=== PATIENT | male | born 1985 | race Caucasian/White ===

== ENCOUNTER 2017-09-11 11:16 | Emergency (ER) | payer MEDICAID ==
[2017-09-11] MEDS ORDERED: hydrOXYzine HCl 25 MG Tab PO ONE (13:29)
[2017-09-11] MEDS ORDERED: methylPREDNISolone Sodium Succinate 125 MG/2 ML SDV IM ONE (13:29)
--- NOTE | 2017-09-11 13:35 | EDM.PDOC ---
ED HPI GENERAL MEDICAL PROBLEM - General Chief Complaint: Skin Complaint Stated Complaint: RASH Time Seen by Provider: 09/11/17 13:23 - History of Present Illness INITIAL COMMENTS - FREE TEXT/NARRATIVE: HISTORY AND PHYSICAL: History of present illness: The patient is a 31-year-old male who presents with a three-week history of dry rash which is intermittently itchy. The patient says he is from [place] and is out here working and is not used to the dryness and the cold and first noticed the rash had his inner thigh area which started out red and dry without itch but only issue at nighttime. Now the patient has the rash along his boot line as well as his waistline but there is no rash on his upper extremities is upper chest or back or face. Patient has used intermittently over the last 3 weeks Benadryl [id number] as well as [id number] hydrocortisone and has no local provider for care. He eating and drinking normally and has no other systemic complaints Review of systems: As per history of present illness and below otherwise all systems reviewed and negative. Past medical history: As per history of present illness and as reviewed below otherwise noncontributory. Surgical history: As per history of present illness and as reviewed below otherwise noncontributory. Social history: No reported history of drug or alcohol abuse. Family history: As per history of present illness and as reviewed below otherwise noncontributory. Physical exam: Gen.: Well-developed well-nourished man who is nontoxic and vital signs been reviewed by me HEENT: Atraumatic, normocephalic, pupils reactive, negative for conjunctival pallor or scleral icterus, mucous membranes moist, throat clear, neck supple, nontender, trachea midline. No oropharyngeal or facial swelling Lungs: Clear to auscultation, breath sounds equal bilaterally, chest nontender. Heart: S1S2, regular rate and rhythm no overt murmurs Abdomen: Soft, nondistended, nontender. . Pelvis: Stable nontender. Genitourinary: Deferred. Rectal: Deferred. Extremities: Atraumatic, negative for cords or calf pain. Neurovascular unremarkable. Neuro: Awake, alert, oriented. Cranial nerves II through XII unremarkable. Cerebellum unremarkable. Motor and sensory unremarkable throughout. Exam nonfocal. Skin: There are localized areas of what appears to be a dermatitis-like reaction noted along his waistline at mid abdomen and along the sides, inner thighs, along the line at the lower leg and all these rash areas are pinkish erythema not raised and are rough dry and scaly. There are no raised lesions or skin breaks there is no vesicles and the remainder of the skin is without rashes or lesions. Diagnostics: [] Therapeutics: Solu-Medrol Vistaril Impression: Exanthems/dermatitis subacute Definitive disposition and diagnosis as appropriate pending reevaluation and review of above. ED ROS GENERAL - Review of Systems Review Of Systems: ROS reveals no pertinent complaints other than HPI. ED EXAM, SKIN/RASH Exam: See Below (See dictation) Course - Orders/Labs/Meds Orders: Active Orders 24 hr Category Date Time Status hydrOXYzine HCl [Atarax] Med 09/11/17 13:29 Once 25 mg PO ONETIME ONE methylPREDNISolone Sod Succ [Solu-MEDROL] Med 09/11/17 13:29 Once 125 mg IM ONETIME ONE Departure - Departure Time of Disposition: 13:34 Disposition: Home, Self-Care 01 Condition: Good Clinical Impression: Dermatitis - Discharge Information Referrals: PCP,None [Primary Care Provider] - Additional Instructions: The following information is given to patients seen in the emergency department who are being discharged to home. This information is to outline your options for follow-up care. We provide all patients seen in our emergency department with a follow-up referral. The need for follow-up, as well as the timing and circumstances, are variable depending upon the specifics of your emergency department visit. If you don't have a primary care physician on staff, we will provide you with a referral. We always advise you to contact your personal physician following an emergency department visit to inform them of the circumstance of the visit and for follow-up with them and/or the need for any referrals to a consulting specialist. The emergency department will also refer you to a specialist when appropriate. This referral assures that you have the opportunity for followup care with a specialist. All of these measure are taken in an effort to provide you with optimal care, which includes your followup. Under all circumstances we always encourage you to contact your private physician who remains a resource for coordinating your care. When calling for followup care, please make the office aware that this follow-up is from your recent emergency room visit. If for any reason you are refused follow-up, please contact the [facility] emergency department at and ask to speak to the emergency department charge nurse. [facility] Primary care- Internal Medicine and Family [address] [address] Please use all hypoallergenic products such as Cetaphil soap and lotion, hypoallergenic laundry detergent and use medications, Atarax prednisone and triamcinolone cream as prescribed. Please call and follow-up in our clinic as this rash may change involve needing reevaluation and further care pending this care plan that we have started today. Return to ER as needed and as discussed. - My Orders Last 24 Hours: My Active Orders 09/11/17 13:29 hydrOXYzine HCl [Atarax] 25 mg PO ONETIME ONE methylPREDNISolone Sod Succ [Solu-MEDROL] 125 mg IM ONETIME ONE - Assessment/Plan Last 24 Hours: My Active Orders 09/11/17 13:29 hydrOXYzine HCl [Atarax] 25 mg PO ONETIME ONE methylPREDNISolone Sod Succ [Solu-MEDROL] 125 mg IM ONETIME ONE
== END 2017-09-11 13:48 | disposition home or self-care (01) ==
LOC: MW.ED 11:16
DX: L30.9 Dermatitis, unspecified (principal)
CPT/HCPCS: 96372; 99282; A9270; J2930

== ENCOUNTER 2018-02-08 20:34 | Emergency (ER) | payer MEDICAID ==
[2018-02-08] MEDS ORDERED: Albuterol/Ipratropium 3.0-0.5 MG/3 ML Neb Soln NEB ONE ×2 (20:41→21:43)
--- NOTE | 2018-02-08 20:44 | EDM.PDOC ---
ED HPI GENERAL MEDICAL PROBLEM - General Chief Complaint: Respiratory Problem Stated Complaint: TROUBLE BREATHING Time Seen by Provider: 02/08/18 20:36 Source of Information: Reports: Patient History Limitations: Reports: No Limitations - History of Present Illness INITIAL COMMENTS - FREE TEXT/NARRATIVE: HISTORY AND PHYSICAL: History of present illness: 32-year-old male presenting to emergency department with chief complaint of shortness of breath progressively worsening over the past 2 months with past medical history of exertional asthma as a child. Patient states that approximately 2 months ago he became somewhat short of breath when running back from work. This is progressively beginning worse. States that he is stopping smoking but seems to be worse when he is smoking. Recently but not drinking in "chain smoker". States that today he became more and more short of breath which was concerning so came to emergency room for further evaluation. States that his shortness of breath has been worse at night does have a history of seasonal allergies and takes Benadryl at night as well. As above he is a smoker and currently quitting. History of childhood exertional asthma which resolved with age. Does not have an inhaler at home and does not see a primary care provider here in [place]. From [facility]. Currently denies any chest pain, palpitations, syncopal episodes, or focal neurologic episodes. O2 sat 95% on room air. Review of systems: As per history of present illness and below otherwise all systems reviewed and negative. Past medical history: As per history of present illness and as reviewed below otherwise noncontributory. Surgical history: As per history of present illness and as reviewed below otherwise noncontributory. Social history: No reported history of drug or alcohol abuse. Family history: As per history of present illness and as reviewed below otherwise noncontributory. Physical exam: HEENT: Atraumatic, normocephalic, pupils reactive, negative for conjunctival pallor or scleral icterus, mucous membranes moist, throat clear, neck supple, nontender, trachea midline. Lungs: Generalized wheezing and decreased breath sounds heard bilaterally and throughout, chest nontender. Heart: S1S2, regular, negative for clicks, rubs, or JVD. Abdomen: Soft, nondistended, nontender. Negative for masses or hepatosplenomegaly. Negative for costovertebral tenderness. Pelvis: Stable nontender. Genitourinary: Deferred. Rectal: Deferred. Extremities: Atraumatic, negative for cords or calf pain. Neurovascular unremarkable. Neuro: Awake, alert, oriented. Cranial nerves II through XII unremarkable. Cerebellum unremarkable. Motor and sensory unremarkable throughout. Exam nonfocal. Diagnostics: Chest x-ray Therapeutics: DuoNeb 2, Ventolin inhaler 1, Kenalog 40 mg IM, Prednisone 40 mg q day x 4 days Impression: Acute asthma exacerbation Seasonal allergies Smoking dependency Plan: Patient had significant improvement after 2 DuoNeb's and 40 mg IM Kenalog. He was discharged in good condition with a prescription for a Ventolin inhaler as well as prednisone 40 mg by mouth daily 4 days. He was instructed to follow-up with the primary care provider and numbers were listed. He was instructed to take medications as prescribed and return to emergency department if he had any new or worsening symptoms. chest area Pain Score (Numeric/FACES): 5 - Related Data Allergies Allergy/AdvReac Type Severity Reaction Status Date / Time No Known Allergies Allergy Verified 02/08/18 20:42 Home Meds: Home Meds . [No Known Home Meds] 09/11/17 [History] Past Medical History - Past Health History Medical/Surgical History: Denies Medical/Surgical History Social & Family History - Family History Family Medical History: Noncontributory ED ROS GENERAL - Review of Systems Review Of Systems: ROS reveals no pertinent complaints other than HPI. ED EXAM, GENERAL - Physical Exam Exam: See Below Course - Vital Signs Last Recorded V/S: Last Vital Signs Temp 97.5 F 02/08/18 20:42 Pulse 62 02/08/18 22:25 Resp 18 02/08/18 22:25 BP 143/78 H 02/08/18 22:25 Pulse Ox 100 02/08/18 21:01 - Orders/Labs/Meds Orders: Active Orders 24 hr Category Date Time Status RT Aerosol Therapy [RC] ASDIRECTED Care 02/08/18 20:41 Active RT Aerosol Therapy [RC] ASDIRECTED Care 02/08/18 21:44 Active Chest 2V [CR] Stat Exams 02/08/18 20:41 Taken Meds: Medications Discontinued Medications Generic Name Dose Route Start Last Admin Trade Name Freq PRN Reason Stop Dose Admin Albuterol/Ipratropium 3 ml 02/08/18 20:41 02/08/18 20:53 Duoneb 3.0-0.5 Mg/3 Ml NEB 02/08/18 20:42 3 ml ONETIME ONE Administration Albuterol/Ipratropium 3 ml 02/08/18 21:43 02/08/18 22:19 Duoneb 3.0-0.5 Mg/3 Ml NEB 02/08/18 21:44 3 ml ONETIME ONE Administration Triamcinolone Acetonide 40 mg 02/08/18 21:44 02/08/18 22:20 Kenalog-40 IM 02/08/18 21:45 40 mg ONETIME ONE Administration Departure - Departure Time of Disposition: 22:37 Disposition: Home, Self-Care 01 Condition: Good Clinical Impression: Asthma exacerbation, mild, Seasonal allergic reaction - Discharge Information Instructions: Asthma, Adult, [id number] Referrals: PCP,None [Primary Care Provider] - Forms: ED Department Discharge Additional Instructions: My general discharge The following information is given to patients seen in the emergency department who are being discharged to home. This information is to outline your options for follow-up care. We provide all patients seen in our emergency department with a follow-up referral. The need for follow-up, as well as the timing and circumstances, are variable depending upon the specifics of your emergency department visit. If you don't have a primary care physician on staff, we will provide you with a referral. We always advise you to contact your personal physician following an emergency department visit to inform them of the circumstance of the visit and for follow-up with them and/or the need for any referrals to a consulting specialist. The emergency department will also refer you to a specialist when appropriate. This referral assures that you have the opportunity for follow-up care with a specialist. All of these measure are taken in an effort to provide you with optimal care, which includes your follow-up. Under all circumstances we always encourage you to contact your private physician who remains a resource for coordinating your care. When calling for follow-up care, please make the office aware that this follow-up is from your recent emergency room visit. If for any reason you are refused follow-up, please contact the [facility] Emergency Department at and asked to speak to the emergency department charge nurse. [facility] Primary [facility] [address] [place] [id number] [facility] [address] [place] [address] 1. Follow-up with primary care provider. Be sure to tell them that you're in the emergency department and they wish for you to be seen as soon as possible. 2. Take medications as prescribed. 3. Return to emergency department if any new or worsening symptoms. - My Orders Last 24 Hours: My Active Orders 02/08/18 20:41 RT Aerosol Therapy [RC] ASDIRECTED Chest 2V [CR] Stat 02/08/18 21:44 RT Aerosol Therapy [RC] ASDIRECTED - Assessment/Plan Last 24 Hours: My Active Orders 02/08/18 20:41 RT Aerosol Therapy [RC] ASDIRECTED Chest 2V [CR] Stat 02/08/18 21:44 RT Aerosol Therapy [RC] ASDIRECTED
[2018-02-08] MEDS ORDERED: Triamcinolone Acetonide 40 MG/ML 1 ML MDV IM ONE (21:44)
--- NOTE | 2018-02-09 19:06 | CR ---
EXAM DATE: 02/08/18 PATIENT'S AGE: 32 Patient: ANOOP SAUCEDA Facility: [place], [place] Site . Site : 1985 Study: XRay Chest [id number]/1/2018 9:27:19 PM Ordering Physician: Clifton Lambert Final Report: INDICATION: hard to breathe since smoking cigarettes INDICATION: Difficulty in breathing. TECHNIQUE: Chest 2 views. COMPARISON: None FINDINGS: Cardiovascular and mediastinum: Heart size and vasculature are normal in caliber and appearance. Mediastinum is within normal limits. Lungs and pleural spaces: Lungs are clear. No sign of infiltrate or mass. No sign of pleural effusion. No pneumothorax. Bones and soft tissues: No significant findings. IMPRESSION: Lungs are clear. Dictated by Venkatesh Villanueva MD @ 02/08/2018 9:31:31 PM Dictated by: Venkatesh Villanueva MD @ 02/08/2018 21:31:36 (Electronic Signature) Report Signed by Proxy. [facility]
== END 2018-02-08 22:45 | disposition home or self-care (01) ==
LOC: MW.ED 20:34
DX: J45.901 Unspecified asthma with (acute) exacerbation (principal); F17.210 Nicotine dependence, cigarettes, uncomplicated
CPT/HCPCS: 71046; 94640; 96372; 99285; J3301

== ENCOUNTER 2018-10-19 19:16 | Emergency (ER) | payer BC, MEDICAID ==
[2018-10-19] MEDS ORDERED: Sodium Chloride 0.9% 2.5 ML Syringe FLUSH PRN (19:21)
[2018-10-19] MEDS ORDERED: Sodium Chloride 0.9% 10 ML Syringe FLUSH PRN (19:21)
[2018-10-19] MEDS ORDERED: Aspirin 81 MG Tab.Chew PO ONE (19:22)
[2018-10-19] MEDS ORDERED: Sodium Chloride 0.9% 1,000 ML IV ONE (19:22)
[2018-10-19] MEDS ORDERED: LORazepam 2 MG/ML SDV IVPUSH ONE (19:22)
--- NOTE | 2018-10-19 19:26 | EDM.PDOC ---
ED HPI GENERAL MEDICAL PROBLEM - General Chief Complaint: Chest Pain Stated Complaint: CHEST PAIN, DIZZY, SHORTNESS OF BREATH Time Seen by Provider: 10/19/18 19:17 - History of Present Illness INITIAL COMMENTS - FREE TEXT/NARRATIVE: HISTORY AND PHYSICAL: History of present illness: The patient is a 32-year-old male with no cardiac or pulmonary history and takes no medications nor does he have a provider locally but does say that he has struggled with anxiety for many years and presents with several days of feeling short of breath with palpitations lightheadedness and worsening of his anxiety symptoms. He says that the symptoms start with his heart beating faster and then he feels like his chest is tight and he feels like he short of breath and he feels very anxious. These episodes come and go and seem to be worse when he is out in public. The patient is been eating and drinking normally. He's had no upper respiratory symptoms fever chills nausea vomiting or diarrhea. He has not passed out or blacked out with these symptoms. The episodes vary in length and he is not taking anything specifically for them. The patient admits to me that he used to smoke a lot of cigarettes and drink alcohol heavily and he gave up both 9 days ago and has been clean for 9 days. He says he did go through some withdrawal symptoms but those seem to have subsided when these new symptoms started. He does not have a head neck or back pain and these had no falls. Patient said that there is nothing new or different today versus any of the days preceding with the same symptoms but he said he is just "freaking out and worried about them". He also said that some coworkers said that maybe he has hypertension he should come in and get checked out. Patient does have a scheduled follow-up appointment in the near future to address his anxiety issues. The patient did admit to nursing that he smoked marijuana 2 weeks ago but he does not use any method of cocaine and is not a regular marijuana user. Review of systems: As per history of present illness and below otherwise all systems reviewed and negative. Past medical history: As per history of present illness and as reviewed below otherwise noncontributory. Surgical history: As per history of present illness and as reviewed below otherwise noncontributory. Social history: No reported history of drug or alcohol abuse. Family history: As per history of present illness and as reviewed below otherwise noncontributory. Physical exam: General: Well-developed well-nourished man who is nontoxic and seem slightly anxious in the room but is cooperative and interactive and not breathless. Vital signs are noted by me HEENT: Atraumatic, normocephalic, pupils reactive, negative for conjunctival pallor or scleral icterus, mucous membranes moist, throat clear, neck supple, nontender, trachea midline. Lungs: Clear to auscultation, breath sounds equal bilaterally, chest nontender. Heart: S1S2, regular rhythm and slightly tachycardic rate of my evaluation, just over 100, no overt murmurs, negative for clicks, rubs, or JVD. Abdomen: Soft, nondistended, nontender. Negative for masses or hepatosplenomegaly.NABS Pelvis: Stable nontender. Genitourinary: Deferred. Rectal: Deferred. Extremities: Atraumatic, negative for cords or calf pain. Neurovascular unremarkable. No pedal edema or leg asymmetry Neuro: Awake, alert, oriented. Cranial nerves II through XII unremarkable. Cerebellum unremarkable. Motor and sensory unremarkable throughout. Exam nonfocal. Skin: He slightly clammy to touch but he is not grossly diaphoretic and turgor is normal. There are no overt rashes or lesions Diagnostics: EKG orthostatic vitals CBC CMP troponin TSH chest x-ray Therapeutics: IV O2 monitor IV fluids aspirin Ativan I discussed with patient and at bedside all testing results including the potassium of 3.1 and the need to supplement with his diet potassium which foods. I've also discussed with him about sodium and to start watching that as it will help his blood pressure. The patient has an appointment with Dr. Simmons next week and I advised the patient to discuss not only his anxiety but also his borderline hypertension as he may need to become medicated for that. I will give him a few tablets of Ativan to use if his anxiety becomes too overwhelming but I have advised him to not take that when he is out and about or work. He is aware of reasons to return to the ED Impression: Episodic palpitations and dyspnea with history of anxiety stable Definitive disposition and diagnosis as appropriate pending reevaluation and review of above. Chest Pain Score (Numeric/FACES): 1 - Related Data Allergies Allergy/AdvReac Type Severity Reaction Status Date / Time No Known Allergies Allergy Verified 10/19/18 19:22 Home Meds: Home Meds . [No Known Home Meds] 10/19/18 [History] Past Medical History - Past Health History Medical/Surgical History: Denies Medical/Surgical History HEENT History: Reports: None Cardiovascular History: Reports: None Respiratory History: Reports: Asthma Gastrointestinal History: Reports: None Genitourinary History: Reports: None Musculoskeletal History: Reports: None Neurological History: Reports: None Psychiatric History: Reports: None Endocrine/Metabolic History: Reports: None Hematologic History: Reports: None Immunologic History: Reports: None Oncologic (Cancer) History: Reports: None Dermatologic History: Reports: None - Infectious Disease History Infectious Disease History: Reports: None - Past Surgical History Head Surgeries/Procedures: Reports: None Social & Family History - Family History Family Medical History: Noncontributory - Caffeine Use Caffeine Use: Reports: Energy Drinks, Soda ED ROS GENERAL - Review of Systems Review Of Systems: ROS reveals no pertinent complaints other than HPI. ED EXAM, GENERAL - Physical Exam Exam: See Below (See dictation) Course - Vital Signs Last Recorded V/S: Last Vital Signs Temp 36.0 C 10/19/18 19:18 Pulse 111 H 10/19/18 19:18 Resp BP 187/97 H 10/19/18 19:18 Pulse Ox 99 10/19/18 19:18 Orthostatic Blood Pressure [ 157/90 Standing] Orthostatic Blood Pressure [ 158/93 Sitting] Orthostatic Blood Pressure [ 157/85 Supine] - Orders/Labs/Meds Orders: Active Orders 24 hr Category Date Time Status Cardiac Monitoring [RC] . DIRECTED Care 10/19/18 19:21 Active EKG Documentation Completion [RC] STAT Care 10/19/18 19:21 Active Orthostatic Vital Signs [RC] ASDIRECTED Care 10/19/18 19:21 Active Oxygen Therapy, ED [RC] ASDIRECTED Care 10/19/18 19:21 Active Pulse Oximetry [RC] ASDIRECTED Care 10/19/18 19:21 Active Chest 1V Frontal [CR] Stat Exams 10/19/18 19:22 Taken Sodium Chloride 0.9% [Saline Flush] Med 10/19/18 19:21 Active 10 ml FLUSH ASDIRECTED PRN Sodium Chloride 0.9% [Saline Flush] Med 10/19/18 19:21 Active 2.5 ml FLUSH ASDIRECTED PRN Saline Lock Insert [OM.PC] Stat Oth 10/19/18 19:21 Ordered Medication Orders Sodium Chloride (Saline Flush) 10 ml FLUSH ASDIRECTED PRN PRN Reason: Keep Vein Open Last Admin: 10/19/18 19:30 Dose: 10 ml Sodium Chloride (Saline Flush) 2.5 ml FLUSH ASDIRECTED PRN PRN Reason: Keep Vein Open Last Admin: 10/19/18 19:30 Dose: 2.5 ml Labs: Laboratory Tests 10/19/18 10/19/18 Range/Units 19:26 19:26 WBC 10.53 (4.0-11.0) K/uL RBC 5.10 (4.50-5.90) M/uL Hgb 16.1 (13.0-17.0) g/dL Hct 46.8 (38.0-50.0) % MCV 91.8 (80.0-98.0) fL MCH 31.6 (27.0-32.0) pg MCHC 34.4 (31.0-37.0) g/dL RDW Std Deviation 42.3 (28.0-62.0) fl RDW Coeff of Dede 13 (11.0-15.0) % Plt Count 391 (150-400) K/uL MPV 8.70 (7.40-12.00) fL Neut % (Auto) 55.1 (48.0-80.0) % Lymph % (Auto) 37.3 (16.0-40.0) % [place] % (Auto) 5.2 (0.0-15.0) % Eos % (Auto) 2.2 (0.0-7.0) % Baso % (Auto) 0.2 (0.0-1.5) % Neut # (Auto) 5.8 H (1.4-5.7) K/uL Lymph # (Auto) 3.9 H (0.6-2.4) K/uL [place] # (Auto) 0.6 (0.0-0.8) K/uL Eos # (Auto) 0.2 (0.0-0.7) K/uL Baso # (Auto) 0.0 (0.0-0.1) K/uL Nucleated RBC % 0.0 /100WBC Nucleated RBCs # 0 K/uL Sodium 140 (136-148) mmol/L Potassium 3.1 L (3.5-5.1) mmol/L Chloride 103 (98-107) mmol/L Carbon Dioxide 27.4 (21.0-32.0) mmol/L BUN 9 (7.0-18.0) mg/dL Creatinine 1.2 (0.8-1.3) mg/dL Est Cr Clr Drug Dosing 88.38 mL/min Estimated GFR (MDRD) > 60.0 ml/min Glucose 102 (74-106) mg/dL Calcium 9.2 (8.5-10.1) mg/dL Total Bilirubin 0.2 (0.2-1.0) mg/dL AST 24 (15-37) IU/L ALT 50 (14-63) IU/L Alkaline Phosphatase 71 (46-116) U/L Troponin I < 0.050 (0.000-0.056) ng/mL Total Protein 7.8 (6.4-8.2) g/dL Albumin 4.3 (3.4-5.0) g/dL Globulin 3.5 (2.6-4.0) g/dL Albumin/Globulin Ratio 1.2 (0.9-1.6) TSH 3rd Generation 1.43 (0.36-3.74) uIU/mL Meds: Medications Generic Name Dose Route Start Last Admin Trade Name Shari PRN Reason Stop Dose Admin Sodium Chloride 10 ml 10/19/18 19:21 10/19/18 19:30 Saline Flush FLUSH 10 ml ASDIRECTED PRN Administration Keep Vein Open Sodium Chloride 2.5 ml 10/19/18 19:21 10/19/18 19:30 Saline Flush FLUSH 2.5 ml ASDIRECTED PRN Administration Keep Vein Open Discontinued Medications Generic Name Dose Route Start Last Admin Trade Name Freq PRN Reason Stop Dose Admin Aspirin 324 mg 10/19/18 19:22 10/19/18 19:28 Aspirin PO 10/19/18 19:23 324 mg ONETIME ONE Administration Sodium Chloride 1,000 mls @ 999 mls/hr 10/19/18 19:22 10/19/18 19:28 Normal Saline IV 10/19/18 20:22 999 mls/hr STAT ONE Administration Lorazepam 1 mg 10/19/18 19:22 10/19/18 19:29 Ativan IVPUSH 10/19/18 19:23 1 mg ONETIME ONE Administration Departure - Departure Time of Disposition: 20:28 Disposition: Home, Self-Care 01 Condition: Good Clinical Impression: Palpitations Dyspnea Qualifiers: Dyspnea type: unspecified Qualified Code(s): R06.00 - Dyspnea, unspecified - Discharge Information Referrals: Raffaele Simmons MD [Primary Care Provider] - Forms: ED Department Discharge Additional Instructions: The following information is given to patients seen in the emergency department who are being discharged to home. This information is to outline your options for follow-up care. We provide all patients seen in our emergency department with a follow-up referral. The need for follow-up, as well as the timing and circumstances, are variable depending upon the specifics of your emergency department visit. If you don't have a primary care physician on staff, we will provide you with a referral. We always advise you to contact your personal physician following an emergency department visit to inform them of the circumstance of the visit and for follow-up with them and/or the need for any referrals to a consulting specialist. The emergency department will also refer you to a specialist when appropriate. This referral assures that you have the opportunity for followup care with a specialist. All of these measure are taken in an effort to provide you with optimal care, which includes your followup. Under all circumstances we always encourage you to contact your private physician who remains a resource for coordinating your care. When calling for followup care, please make the office aware that this follow-up is from your recent emergency room visit. If for any reason you are refused follow-up, please contact the [facility] emergency department at and ask to speak to the emergency department charge nurse. [facility] Primary care- Internal Medicine and Family [place] [id number] [place] [id number] [place] [address] Please keep your follow-up appointment with Dr. Simmons or connect with one of our providers in the clinic using resources given to above. Use Ativan you have been given only when you're at home and only when you cannot control your anxiety or other symptoms more naturally. Push hydration and eat potassium-rich foods. Please start looking at the content of the foods that you're eating to assess the sodium amount and try to reduce sodium intake. Return to ER as needed and as discussed - My Orders Last 24 Hours: My Active Orders 10/19/18 19:21 Cardiac Monitoring [RC] . DIRECTED EKG Documentation Completion [RC] STAT Orthostatic Vital Signs [RC] ASDIRECTED Oxygen Therapy, ED [RC] ASDIRECTED Pulse Oximetry [RC] ASDIRECTED Sodium Chloride 0.9% [Saline Flush] 10 ml FLUSH ASDIRECTED PRN Sodium Chloride 0.9% [Saline Flush] 2.5 ml FLUSH ASDIRECTED PRN Saline Lock Insert [OM.PC] Stat 10/19/18 19:22 Chest 1V Frontal [CR] Stat - Assessment/Plan Last 24 Hours: My Active Orders 10/19/18 19:21 Cardiac Monitoring [RC] . DIRECTED EKG Documentation Completion [RC] STAT Orthostatic Vital Signs [RC] ASDIRECTED Oxygen Therapy, ED [RC] ASDIRECTED Pulse Oximetry [RC] ASDIRECTED Sodium Chloride 0.9% [Saline Flush] 10 ml FLUSH ASDIRECTED PRN Sodium Chloride 0.9% [Saline Flush] 2.5 ml FLUSH ASDIRECTED PRN Saline Lock Insert [OM.PC] Stat 10/19/18 19:22 Chest 1V Frontal [CR] Stat
[2018-10-19 19:59] LABS: CHLORIDE,CL 103 mmol/L (98-107); SODIUM,NA 140 mmol/L (136-148)
--- NOTE | 2018-10-19 20:33 | CR ---
CHEST 1 VIEW AP INDICATION: Chest pain. IMPRESSION: Normal heart size and vascular pattern. Lungs are clear. No pneumothorax or pleural abnormality. ECG Monitor leads projected over the patient. Dictated by Minh Sánchez MD @ Oct 19 2018 8:32PM Signed by Dr. Minh Sánchez @ Oct 19 2018 8:32PM
== END 2018-10-19 20:38 | disposition home or self-care (01) ==
LOC: MW.ED 19:16
DX: R00.2 Palpitations (principal); R06.02 Shortness of breath
CPT/HCPCS: 71045; 80053; 84443; 84484; 85025; 93005; 96361; 96374; 99285; A9270; J2060; J7040; 99284

== ENCOUNTER 2018-11-10 18:28 | Emergency (ER) | payer BC ==
--- NOTE | 2018-11-10 18:50 | EDM.PDOC ---
ED HPI GENERAL MEDICAL PROBLEM - General Chief Complaint: Respiratory Problem Stated Complaint: SPOKE TO NURSE Time Seen by Provider: 11/10/18 18:36 Source of Information: Reports: Patient History Limitations: Reports: No Limitations - History of Present Illness INITIAL COMMENTS - FREE TEXT/NARRATIVE: HISTORY AND PHYSICAL: History of present illness: Patient is a 33-year-old male who presents to the emergency room with complaints of a cough and dental abscess to the right upper jawline. He states he has had this cough over the past week and has been using a family members inhaler. He states he inhaler has helped alleviate his symptoms but has not completely resolved. He also has noticed a dental abscess to the right upper jawline which she has not yet seen a dentist for. Patient denies any fever, chills, headache, change in vision, syncope or near syncope. Denies any chest pain, back pain, shortness of breath. Denies any abdominal pain, nausea, vomiting, diarrhea, constipation or dysuria. Has not noted any blood in urine or stool. Patient has been eating and drinking appropriately. Review of systems: As per history of present illness and below otherwise all systems reviewed and negative. Past medical history: As per history of present illness and as reviewed below otherwise noncontributory. Surgical history: As per history of present illness and as reviewed below otherwise noncontributory. Social history: See social history for further information Family history: As per history of present illness and as reviewed below otherwise noncontributory. Physical exam: General: Well-developed and well-nourished 33-year-old male. Alert and oriented. Nontoxic appearing and in no acute distress. HEENT: Atraumatic, normocephalic, pupils equal and reactive bilaterally, negative for conjunctival pallor or scleral icterus, mucous membranes moist, dental abscess noted along the tooth #14 with erythema of the gumline. TMs normal bilaterally, throat clear, neck supple, nontender, trachea midline. No drooling or trismus noted. No meningeal signs. No hot potato voice noted. Lungs: Clear to auscultation, breath sounds equal bilaterally, chest nontender. Heart: S1S2, regular rate and rhythm without overt murmur Abdomen: Soft, nondistended, nontender. Negative for masses or hepatosplenomegaly. Negative for costovertebral tenderness. Pelvis: Stable nontender. Genitourinary: Deferred. Rectal: Deferred. Skin: Intact, warm, dry. No lesions or rashes noted. Extremities: Atraumatic, moves all extremities per self with difficulty or deficits, negative for cords or calf pain. Neurovascular unremarkable. Neuro: Awake, alert, oriented. Cranial nerves II through XII unremarkable. Cerebellum unremarkable. Motor and sensory unremarkable throughout. Exam nonfocal. Notes: Chest x-ray shows no acute findings. I will give him a prescription for inhaler. We'll treat the dental abscess with clindamycin. Supportive care measures were reviewed and discussed. Voices understanding and is agreeable to plan of care. Denies any further questions or concerns at this time. Diagnostics: Chest x-ray Therapeutics: Dental balls Prescription: Clindamycin Pro-air Impression: Bronchitis Dental abscess Plan: 1. Please take the antibiotic as prescribed. Continue to abstain from tobacco. 2. Tylenol and/or ibuprofen as needed for pain management. "Tooth Balls" have been given to you; apply along the gumline every 2-3 hours as needed. Do not swallow these; external use only. Use the inhaler as needed for difficulty breathing. 3. Follow-up with a dentist for definitive care. Return to the ED as needed and as discussed. Definitive disposition and diagnosis as appropriate pending reevaluation and review of above. - Related Data Allergies Allergy/AdvReac Type Severity Reaction Status Date / Time No Known Allergies Allergy Verified 11/10/18 18:40 Home Meds: Home Meds LORazepam [Ativan] 0.5 mg PO DAILY PRN 11/10/18 [History] Past Medical History - Past Health History Medical/Surgical History: Denies Medical/Surgical History HEENT History: Reports: None Cardiovascular History: Reports: None Respiratory History: Reports: Asthma Gastrointestinal History: Reports: None Genitourinary History: Reports: None Musculoskeletal History: Reports: None Neurological History: Reports: None Psychiatric History: Reports: None Endocrine/Metabolic History: Reports: None Hematologic History: Reports: None Immunologic History: Reports: None Oncologic (Cancer) History: Reports: None Dermatologic History: Reports: None - Infectious Disease History Infectious Disease History: Reports: None - Past Surgical History Head Surgeries/Procedures: Reports: None Social & Family History - Family History Family Medical History: Noncontributory - Caffeine Use Caffeine Use: Reports: Energy Drinks, Soda ED ROS GENERAL - Review of Systems Review Of Systems: ROS reveals no pertinent complaints other than HPI. ED EXAM, GENERAL - Physical Exam Exam: See Below (See dictation) Course - Vital Signs Last Recorded V/S: Last Vital Signs Temp 97.9 F 11/10/18 18:41 Pulse 78 11/10/18 19:37 Resp 18 11/10/18 19:37 BP 134/82 11/10/18 19:37 Pulse Ox 97 11/10/18 19:37 - Orders/Labs/Meds Meds: Medications Discontinued Medications Generic Name Dose Route Start Last Admin Trade Name Freq PRN Reason Stop Dose Admin Benzocaine 2 each 11/10/18 18:57 11/10/18 19:23 Hurricaine One 20% MUCMEM 11/10/18 18:58 2 each ONETIME ONE Administration Lidocaine HCl 15 ml 11/10/18 18:57 11/10/18 19:23 Xylocaine 2% Viscous PO 11/10/18 18:58 15 ml ONETIME ONE Administration Departure - Departure Time of Disposition: 19:04 Disposition: Home, Self-Care 01 Clinical Impression: Dental abscess, Bronchitis - Discharge Information Instructions: Dental Abscess, [id number], Acute Bronchitis, Adult, Easy-to- Read Referrals: PCP,Unknown [Primary Care Provider] - Forms: ED Department Discharge Additional Instructions: The following information is given to patients seen in the emergency department who are being discharged to home. This information is to outline your options for follow-up care. We provide all patients seen in our emergency department with a follow-up referral. The need for follow-up, as well as the timing and circumstances, are variable depending upon the specifics of your emergency department visit. If you don't have a primary care physician on staff, we will provide you with a referral. We always advise you to contact your personal physician following an emergency department visit to inform them of the circumstance of the visit and for follow-up with them and/or the need for any referrals to a consulting specialist. The emergency department will also refer you to a specialist when appropriate. This referral assures that you have the opportunity for follow-up care with a specialist. All of these measure are taken in an effort to provide you with optimal care, which includes your follow-up. Under all circumstances we always encourage you to contact your private physician who remains a resource for coordinating your care. When calling for follow-up care, please make the office aware that this follow-up is from your recent emergency room visit. If for any reason you are refused follow-up, please contact the [facility] Emergency Department at and asked to speak to the emergency department charge nurse. [facility] Primary [facility] [address] [place] [address] [facility] [address] [place] [id number] 1. Please take the antibiotic as prescribed. Continue to abstain from tobacco. 2. Tylenol and/or ibuprofen as needed for pain management. "Tooth Balls" have been given to you; apply along the gumline every 2-3 hours as needed. Do not swallow these; external use only. Use the inhaler as needed for difficulty breathing. 3. Follow-up with a dentist for definitive care. Return to the ED as needed and as discussed.
[2018-11-10] MEDS ORDERED: Lidocaine 2% Viscous Solution 15 ML Cup PO ONE (18:57)
[2018-11-10] MEDS ORDERED: Benzocaine 20% Topical Spray UD MUCMEM ONE (18:57)
--- NOTE | 2018-11-10 19:29 | CR ---
INDICATION: Chest pain, shortness of breath TECHNIQUE: Chest radiograph 2 views COMPARISON: 10/19/2018 FINDINGS: Mediastinum: The mediastinum is normal in appearance. The heart silhouette is normal in size and morphology. Lung: Both lungs are unremarkable in appearance. No sign of pleural effusion seen. No pneumothorax is identified. Musculoskeletal: Unremarkable for age. IMPRESSION: 1. No acute cardiopulmonary disease is seen. Dictated by: Luis Ziegler MD @ 11/10/2018 19:27:59 (Electronically Signed)
== END 2018-11-10 19:39 | disposition home or self-care (01) ==
LOC: MW.ED 18:28
DX: J40 Bronchitis, not specified as acute or chronic (principal); K04.7 Periapical abscess without sinus; Z79.899 Other long term (current) drug therapy
CPT/HCPCS: 71046; 99284; A9270; 99283

== ENCOUNTER 2018-11-15 18:45 | Emergency (ER) | payer BC ==
[2018-11-15] MEDS ORDERED: Albuterol/Ipratropium 3.0-0.5 MG/3 ML Neb Soln NEB ONE (19:14)
[2018-11-15] MEDS ORDERED: methylPREDNISolone Sodium Succinate 125 MG/2 ML SDV IM ONE (19:14)
--- NOTE | 2018-11-15 19:18 | EDM.PDOC ---
ED HPI GENERAL MEDICAL PROBLEM - General Chief Complaint: Respiratory Problem Stated Complaint: PT HAS DIFFICULTY BREATHING Time Seen by Provider: 11/15/18 19:00 - History of Present Illness INITIAL COMMENTS - FREE TEXT/NARRATIVE: HISTORY AND PHYSICAL: History of present illness: The patient is a 33-year-old male who presents with complaints of bronchitis and bronchitic cough that he was seen here for on November 10 and says it is not getting better. I saw the patient on November 19 for chest pain and shortness of breath after he had just recently quit smoking and drinking and he had a full workup which was negative. The patient at that time had no bronchitic symptoms or wheezing. The patient says that he came here on November 10 and I have reviewed that chart. He had a bronchitic spastic cough had a chest x-ray that was negative and was given an inhaler without a spacer. He says he has been using the inhaler but not on a regular basis. The patient says he did have exercise- induced asthma as a teen but has not had any issues with asthma since and since quitting smoking he has not resumed smoking as a habit. He has been hydrating. The patient says that he has had posttussive vomiting but no vomiting without a coughing episode. 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 A similar episode happened last night and he is concerned that he is not improving with use of his inhaler. He has no chest pain per se no abdominal pain no fevers chills or upper respiratory symptoms. The patient said the other day he did feel really hot and was sweating while at work but he did not have a thermometer take his temperature. He has not had an episode like that since. He did not get his flu shot this year and when he has a cough that is dry and hacking and nonproductive. Review of systems: As per history of present illness and below otherwise all systems reviewed and negative. Past medical history: As per history of present illness and as reviewed below otherwise noncontributory. Surgical history: As per history of present illness and as reviewed below otherwise noncontributory. Social history: No reported history of drug or alcohol abuse. Family history: As per history of present illness and as reviewed below otherwise noncontributory. Physical exam: General: Well-developed well-nourished man who is nontoxic and speaking clearly in the ED without breathlessness. Vital signs are noted by me HEENT: Atraumatic, normocephalic, , negative for conjunctival pallor or scleral icterus, mucous membranes moist, throat clear, neck supple, nontender, trachea midline. Lungs: Bilateral wheezing without stridor or work of breathing,, breath sounds equal bilaterally, chest nontender. Heart: S1S2, regular rate and rhythm no overt murmurs Abdomen: Soft, nondistended, nontender. Negative for masses or hepatosplenomegaly. NABS Pelvis: deferred. Genitourinary: Deferred. Rectal: Deferred. Extremities: Atraumatic, negative for cords or calf pain. Neurovascular unremarkable. no pedal edema or leg asymmetry Neuro: Awake, alert, oriented. Cranial nerves II through XII unremarkable. Cerebellum unremarkable. Motor and sensory unremarkable throughout. Exam nonfocal. Diagnostics: Influenza swab, chest x-ray from 5 days ago was reviewed Therapeutics: DuoNeb Solu-Medrol spacer and teaching After DuoNeb patient feels significantly improved and has diminished wheezing but still has some persistent expiratory wheezing on the right side. He was offered another DuoNeb and declines. I also offered him a chest x-ray which she declines. I will give him prednisone for home and have strongly advised that he needs to follow-up in the clinic for further care of this problem and his third visit to the ED in less than a month and a half. He states understanding Impression: Asthmatic bronchitis Definitive disposition and diagnosis as appropriate pending reevaluation and review of above. - Related Data Allergies Allergy/AdvReac Type Severity Reaction Status Date / Time No Known Allergies Allergy Verified 11/15/18 19:02 Home Meds: Home Meds LORazepam [Ativan] 0.5 mg PO DAILY PRN 11/10/18 [History] Albuterol [Ventolin HFA] 1 - 2 puff INH ASDIRECTED 11/15/18 [History] Clindamycin HCl 300 mg PO TID 11/15/18 [History] Past Medical History - Past Health History Medical/Surgical History: Denies Medical/Surgical History HEENT History: Reports: None Cardiovascular History: Reports: None Respiratory History: Reports: Asthma Gastrointestinal History: Reports: None Genitourinary History: Reports: None Musculoskeletal History: Reports: None Neurological History: Reports: None Psychiatric History: Reports: Anxiety Endocrine/Metabolic History: Reports: None Hematologic History: Reports: None Immunologic History: Reports: None Oncologic (Cancer) History: Reports: None Dermatologic History: Reports: None - Infectious Disease History Infectious Disease History: Reports: None - Past Surgical History Head Surgeries/Procedures: Reports: None Social & Family History - Family History Family Medical History: Noncontributory - Tobacco Use Smoking Status *Q: Former Smoker Used Tobacco, but Quit: Yes Month/Year Tobacco Last Used: 2018 - Caffeine Use Caffeine Use: Reports: Energy Drinks, Soda - Recreational Drug Use Recreational Drug Use: No ED ROS GENERAL - Review of Systems Review Of Systems: ROS reveals no pertinent complaints other than HPI. ED EXAM, GENERAL - Physical Exam Exam: See Below (See dictation) Course - Vital Signs Last Recorded V/S: Last Vital Signs Temp 36.7 C 11/15/18 18:59 Pulse 84 11/15/18 18:59 Resp 20 11/15/18 18:59 BP 150/85 H 11/15/18 18:59 Pulse Ox 95 11/15/18 18:59 - Orders/Labs/Meds Orders: Active Orders 24 hr Category Date Time Status Communication Order [RC] STAT Care 11/15/18 19:14 Active RT Aerosol Therapy [RC] ASDIRECTED Care 11/15/18 19:14 Active Meds: Medications Discontinued Medications Generic Name Dose Route Start Last Admin Trade Name Freq PRN Reason Stop Dose Admin Albuterol/Ipratropium 3 ml 11/15/18 19:14 11/15/18 19:20 Duoneb 3.0-0.5 Mg/3 Ml NEB 11/15/18 19:15 3 ml ONETIME ONE Administration Methylprednisolone Sodium Succinate 125 mg 11/15/18 19:14 11/15/18 19:36 Solu-Medrol IM 11/15/18 19:15 125 mg ONETIME ONE Administration Departure - Departure Time of Disposition: 20:25 Disposition: Home, Self-Care 01 Condition: Good Clinical Impression: Asthmatic bronchitis Qualifiers: Asthma severity: mild Asthma persistence: intermittent Asthma complication type : uncomplicated Qualified Code(s): J45.20 - Mild intermittent asthma, uncomplicated - Discharge Information Referrals: Raffaele Simmons MD [Primary Care Provider] - Forms: ED Department Discharge Additional Instructions: The following information is given to patients seen in the emergency department who are being discharged to home. This information is to outline your options for follow-up care. We provide all patients seen in our emergency department with a follow-up referral. The need for follow-up, as well as the timing and circumstances, are variable depending upon the specifics of your emergency department visit. If you don't have a primary care physician on staff, we will provide you with a referral. We always advise you to contact your personal physician following an emergency department visit to inform them of the circumstance of the visit and for follow-up with them and/or the need for any referrals to a consulting specialist. The emergency department will also refer you to a specialist when appropriate. This referral assures that you have the opportunity for followup care with a specialist. All of these measure are taken in an effort to provide you with optimal care, which includes your followup. Under all circumstances we always encourage you to contact your private physician who remains a resource for coordinating your care. When calling for followup care, please make the office aware that this follow-up is from your recent emergency room visit. If for any reason you are refused follow-up, please contact the [facility] emergency department at and ask to speak to the emergency department charge nurse. [facility] Primary care- Internal Medicine and Family [address] [address] Use your inhaler that your rehabilitation with the spacer you have been given this evening every 6 hours for the next 2 days despite no symptoms and use also as needed for coughing spasms. After the next 2 days then use it every 6 hours as needed. Take prednisone as you have been prescribed starting tomorrow and to use cough medicine as prescribed at bedtime to help with sleeping. Push hydration and please call the clinic and schedule a follow-up appointment as we discussed for further care and evaluation. Return to ER as needed and as discussed - My Orders Last 24 Hours: My Active Orders 11/15/18 19:14 Communication Order [RC] STAT RT Aerosol Therapy [RC] ASDIRECTED - Assessment/Plan Last 24 Hours: My Active Orders 11/15/18 19:14 Communication Order [RC] STAT RT Aerosol Therapy [RC] ASDIRECTED
== END 2018-11-15 20:56 | disposition home or self-care (01) ==
LOC: MW.ED 18:45
DX: J45.20 Mild intermittent asthma, uncomplicated (principal); Z79.899 Other long term (current) drug therapy; Z87.891 Personal history of nicotine dependence
CPT/HCPCS: 87804; 94640; 96372; 99285; J2930; 99283; J7620-GY

== ENCOUNTER 2019-01-25 19:11 | Emergency (ER) | payer SELFPAY ==
--- NOTE | 2019-01-25 19:20 | EDM.PDOC ---
ED HPI GENERAL MEDICAL PROBLEM - General Chief Complaint: Abdominal Pain Stated Complaint: PAIN IN RT SIDE Time Seen by Provider: 01/25/19 19:16 - History of Present Illness INITIAL COMMENTS - FREE TEXT/NARRATIVE: HISTORY AND PHYSICAL: History of present illness: Patient 33-year-old white male with past medical history of asthma who presents with concern of left-sided poorly localized abdominal pain it's been intermittent and described as sharp over last several days but no vomiting no diarrhea no fever no chills no trauma no other concern he denies history of urolithiasis denies urinary tract symptoms Review of systems: As per history of present illness and below otherwise all systems reviewed and negative. Past medical history: As per history of present illness and as reviewed below otherwise noncontributory. Surgical history: As per history of present illness and as reviewed below otherwise noncontributory. Social history: No reported history of drug or alcohol abuse. Family history: As per history of present illness and as reviewed below otherwise noncontributory. Physical exam: HEENT: Atraumatic, normocephalic, pupils reactive, negative for conjunctival pallor or scleral icterus, mucous membranes moist, throat clear, neck supple, nontender, trachea midline. Lungs: Clear to auscultation, breath sounds equal bilaterally, chest nontender. Heart: S1S2, regular, negative for clicks, rubs, or JVD. Abdomen: Soft, nondistended, no localized tenderness. Negative for masses or hepatosplenomegaly. Negative for costovertebral tenderness. Pelvis: Stable nontender. Genitourinary: Deferred. Rectal: Deferred. Extremities: Atraumatic, negative for cords or calf pain. Neurovascular unremarkable. Neuro: Awake, alert, oriented. Cranial nerves II through XII unremarkable. Cerebellum unremarkable. Motor and sensory unremarkable throughout. Exam nonfocal. Diagnostics: CBC CMP and lipase UA acute abdominal series with chest x-ray Therapeutics: Toradol 60 mg IM Impression: #1 undifferentiated abdominal pain Definitive disposition and diagnosis as appropriate pending reevaluation and review of above. - Related Data Allergies Allergy/AdvReac Type Severity Reaction Status Date / Time No Known Allergies Allergy Verified 01/25/19 19:22 Home Meds: Home Meds LORazepam [Ativan] 1 mg PO BID PRN 11/10/18 [History] Past Medical History - Past Health History Medical/Surgical History: Denies Medical/Surgical History HEENT History: Reports: None Cardiovascular History: Reports: None Respiratory History: Reports: Asthma Gastrointestinal History: Reports: None Genitourinary History: Reports: None Musculoskeletal History: Reports: None Neurological History: Reports: None Psychiatric History: Reports: Anxiety Endocrine/Metabolic History: Reports: None Hematologic History: Reports: None Immunologic History: Reports: None Oncologic (Cancer) History: Reports: None Dermatologic History: Reports: None - Infectious Disease History Infectious Disease History: Reports: None - Past Surgical History Head Surgeries/Procedures: Reports: None Social & Family History - Family History Family Medical History: Noncontributory - Caffeine Use Caffeine Use: Reports: Energy Drinks, Soda ED ROS GENERAL - Review of Systems Review Of Systems: ROS reveals no pertinent complaints other than HPI. ED EXAM, GENERAL - Physical Exam Exam: See Below (dictation) Course - Vital Signs Last Recorded V/S: Last Vital Signs Temp 36.6 C 01/25/19 20:19 Pulse 77 01/25/19 20:19 Resp 20 01/25/19 20:19 BP 132/86 01/25/19 20:19 Pulse Ox 94 L 01/25/19 20:19 - Orders/Labs/Meds Labs: Laboratory Tests 01/25/19 01/25/19 01/25/19 Range/Units 19:30 19:35 19:35 WBC 12.32 H (4.0-11.0) K/uL RBC 4.87 (4.50-5.90) M/uL Hgb 14.9 (13.0-17.0) g/dL Hct 43.9 (38.0-50.0) % MCV 90.1 (80.0-98.0) fL MCH 30.6 (27.0-32.0) pg MCHC 33.9 (31.0-37.0) g/dL RDW Std Deviation 42.5 (28.0-62.0) fl RDW Coeff of Dede 13 (11.0-15.0) % Plt Count 318 (150-400) K/uL MPV 8.50 (7.40-12.00) fL Neut % (Auto) 68.7 (48.0-80.0) % Lymph % (Auto) 22.7 (16.0-40.0) % [place] % (Auto) 7.1 (0.0-15.0) % Eos % (Auto) 1.3 (0.0-7.0) % Baso % (Auto) 0.2 (0.0-1.5) % Neut # (Auto) 8.5 H (1.4-5.7) K/uL Lymph # (Auto) 2.8 H (0.6-2.4) K/uL [place] # (Auto) 0.9 H (0.0-0.8) K/uL Eos # (Auto) 0.2 (0.0-0.7) K/uL Baso # (Auto) 0.0 (0.0-0.1) K/uL Nucleated RBC % 0.0 /100WBC Nucleated RBCs # 0 K/uL Sodium 136 (136-148) mmol/L Potassium 3.6 (3.5-5.1) mmol/L Chloride 104 (98-107) mmol/L Carbon Dioxide 23.1 (21.0-32.0) mmol/L BUN 10 (7.0-18.0) mg/dL Creatinine 1.2 (0.8-1.3) mg/dL Est Cr Clr Drug Dosing 87.56 mL/min Estimated GFR (MDRD) > 60.0 ml/min Glucose 113 H (74-106) mg/dL Calcium 8.6 (8.5-10.1) mg/dL Total Bilirubin 0.4 (0.2-1.0) mg/dL AST 20 (15-37) IU/L ALT 33 (14-63) IU/L Alkaline Phosphatase 73 (46-116) U/L Total Protein 6.8 (6.4-8.2) g/dL Albumin 3.6 (3.4-5.0) g/dL Globulin 3.2 (2.6-4.0) g/dL Albumin/Globulin Ratio 1.1 (0.9-1.6) Lipase 186 (73-393) U/L Urine Color YELLOW Urine Appearance CLEAR Urine pH 6.0 (5.0-8.0) Ur Specific [place] 1.010 (1.001-1.035) Urine Protein NEGATIVE (NEGATIVE) mg/dL Urine Glucose (UA) NEGATIVE (NEGATIVE) mg/dL Urine Ketones NEGATIVE (NEGATIVE) mg/dL Urine Occult Blood NEGATIVE (NEGATIVE) Urine Nitrite NEGATIVE (NEGATIVE) Urine Bilirubin NEGATIVE (NEGATIVE) Urine Urobilinogen 0.2 (<2.0) EU/dL Ur Leukocyte Esterase NEGATIVE (NEGATIVE) Meds: Medications Discontinued Medications Generic Name Dose Route Start Last Admin Trade Name Shari PRN Reason Stop Dose Admin Ketorolac Tromethamine 60 mg 01/25/19 19:26 01/25/19 19:34 Toradol IM 01/25/19 19:27 60 mg ONETIME ONE Administration Departure - Departure Time of Disposition: 20:21 Disposition: Home, Self-Care 01 Condition: Good Clinical Impression: Abdominal pain - Discharge Information Referrals: Raffaele Simmons MD [Primary Care Provider] - Forms: ED Department Discharge Additional Instructions: The following information is given to patients seen in the emergency department who are being discharged to home. This information is to outline your options for follow-up care. We provide all patients seen in our emergency department with a follow-up referral. The need for follow-up, as well as the timing and circumstances, are variable depending upon the specifics of your emergency department visit. If you don't have a primary care physician on staff, we will provide you with a referral. We always advise you to contact your personal physician following an emergency department visit to inform them of the circumstance of the visit and for follow-up with them and/or the need for any referrals to a consulting specialist. The emergency department will also refer you to a specialist when appropriate. This referral assures that you have the opportunity for followup care with a specialist. All of these measure are taken in an effort to provide you with optimal care, which includes your followup. Under all circumstances we always encourage you to contact your private physician who remains a resource for coordinating your care. When calling for followup care, please make the office aware that this follow-up is from your recent emergency room visit. If for any reason you are refused follow-up, please contact the [facility] emergency department at and asked to speak to the emergency department charge nurse. [facility] Specialty Care - General Surgery Professional Building [address] [place] [address], [address] [place] [address] Follow-up primary medical doctor in general surgery as needed as discussed her lipids in 24 hours return as needed as discussed
[2019-01-25] MEDS ORDERED: Ketorolac 60 MG/2 ML SDV IM ONE (19:26)
[2019-01-25 20:00] LABS: CHLORIDE,CL 104 mmol/L (98-107); SODIUM,NA 136 mmol/L (136-148)
--- NOTE | 2019-01-25 20:15 | CR ---
INDICATION: abd pain COMPARISON: 11/10/2018. FINDINGS: PA view of the chest and supine and upright views of the abdomen and pelvis are reviewed. There is adequate inflation of the lungs. No focal airspace consolidation, pneumothorax or effusion. Cardiomediastinal silhouette is within normal limits. - The bowel gas pattern is unobstructed. No dilated loops of small bowel or differential air-fluid levels. No pneumatosis. No pathologic calcifications. - No acute osseous findings. IMPRESSION: No acute cardiopulmonary findings. Unobstructed bowel gas pattern. Dictated by Minh Lane MD @ 01/25/2019 8:14:43 PM Dictated by: Minh Lane MD @ 01/25/2019 20:14:58 (Electronically Signed)
== END 2019-01-25 20:31 | disposition home or self-care (01) ==
LOC: MW.ED 19:11
DX: R10.9 Unspecified abdominal pain (principal); F41.9 Anxiety disorder, unspecified; J45.909 Unspecified asthma, uncomplicated; Z79.899 Other long term (current) drug therapy
CPT/HCPCS: 36415; 74022; 80053; 81003; 83690; 85025; 96372; 99284; J1885; 99283

== ENCOUNTER 2019-03-03 18:37 | Emergency (ER) | payer MEDICAID, OTHER ==
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
== END 2019-03-03 19:54 | disposition home or self-care (01) ==
LOC: MW.ED 18:37
DX: F41.9 Anxiety disorder, unspecified (principal); F17.210 Nicotine dependence, cigarettes, uncomplicated; I10 Essential (primary) hypertension; J45.909 Unspecified asthma, uncomplicated
CPT/HCPCS: 93005; 99282; 99283

== ENCOUNTER 2020-03-02 16:51 | Emergency (ER) | payer SELFPAY ==
--- NOTE | 2020-03-02 17:32 | EDM.PDOC ---
ED [facility] GENERAL MEDICAL PROBLEM - General Chief Complaint: ENT Problem Stated Complaint: TOOTH PAIN Time Seen by Provider: 03/02/20 17:15 Source of Information: Reports: Patient History Limitations: Reports: No Limitations - History of Present Illness INITIAL COMMENTS - FREE TEXT/NARRATIVE: 34-year-old male presents with dental pain for 3 days. Pain is moderate, nonradiating, localized to the right upper jaw, constant. No alleviating factors. Pain is worse with chewing. Denies fever, chills. ROS: A 10-point review of systems, other than pertinent positives and negatives as stated per HPI, is otherwise negative Past medical history: No additional pertinent history Past Surgical history: No additional pertinent history Social history: No additional pertinent history Family history: No additional pertinent history PHYSICAL EXAM General: AOx4, GCS = 15, No distress HEENT: dry mucous membrane, no periapical abscess palpable around tooth 12 and 13, tenderness to tooth 12 and 13. Neck: supple, no meningismus, no Kernig or Brudzinski Cardiac: S1S2 RRR Respiratory: CTAB, no crackles or rales, no wheezing Abdomen: Soft, nontender, no rebound or guarding, nondistended, no pulsatile mass. Back: nontender Musculoskeletal: NVI distally, no deformity Neuro: No focal deficits, CN 2 - 12 WNL. right side of face Pain Score (Numeric/FACES): 10 - Related Data Allergies Allergy/AdvReac Type Severity Reaction Status Date / Time No Known Allergies Allergy Verified 03/02/20 17:10 Home Meds: Home Meds Naproxen [EC-Naprosyn] 375 mg PO Q12H #12 tablet. 03/02/20 [Rx] Penicillin V Potassium [Veetids] 500 mg PO Q6H #40 tab 03/02/20 [Rx] Past Medical History - Past Health History Medical/Surgical History: Denies Medical/Surgical History HEENT History: Reports: None Cardiovascular History: Reports: Hypertension Respiratory History: Reports: Asthma Gastrointestinal History: Reports: None Genitourinary History: Reports: None Musculoskeletal History: Reports: None Neurological History: Reports: None Psychiatric History: Reports: Anxiety Endocrine/Metabolic History: Reports: None Hematologic History: Reports: None Immunologic History: Reports: None Oncologic (Cancer) History: Reports: None Dermatologic History: Reports: None - Infectious Disease History Infectious Disease History: Reports: None - Past Surgical History Head Surgeries/Procedures: Reports: None Social & Family History - Family History Family Medical History: Noncontributory - Tobacco Use Smoking Status *Q: Current Every Day Smoker Years of Tobacco use: 15 Packs/Tins Daily: 1 - Caffeine Use Caffeine Use: Reports: Soda - Recreational Drug Use Recreational Drug Use: No ED ROS GENERAL - Review of Systems Review Of Systems: Comprehensive ROS is negative, except as noted in HPI. ED EXAM, GENERAL - Physical Exam Exam: See Below (see dictation) Course - Vital Signs Last Recorded V/S: Last Vital Signs Temp 97.6 F 03/02/20 17:11 Pulse 69 03/02/20 17:11 Resp 16 03/02/20 17:11 BP 154/80 H 03/02/20 17:11 Pulse Ox 97 03/02/20 17:11 Departure - Departure Time of Disposition: 17:30 Disposition: Home, Self-Care 01 Condition: Good Clinical Impression: Dental caries - Discharge Information *PRESCRIPTION DRUG MONITORING PROGRAM REVIEWED*: Not Applicable *COPY OF PRESCRIPTION DRUG MONITORING REPORT IN PATIENT KARIME: Not Applicable Prescriptions: Naproxen [EC-Naprosyn] 375 mg PO Q12H #12 tablet. Penicillin V Potassium [Veetids] 500 mg PO Q6H #40 tab Referrals: PCP,None [Primary Care Provider] - Additional Instructions: The following information is given to patients seen in the emergency department who are being discharged to home. This information is to outline your options for follow-up care. We provide all patients seen in our emergency department with a follow-up referral. The need for follow-up, as well as the timing and circumstances, are variable depending upon the specifics of your emergency department visit. If you don't have a primary care physician on staff, we will provide you with a referral. We always advise you to contact your personal physician following an emergency department visit to inform them of the circumstance of the visit and for follow-up with them and/or the need for any referrals to a consulting specialist. The emergency department will also refer you to a specialist when appropriate. This referral assures that you have the opportunity for follow-up care with a specialist. All of these measure are taken in an effort to provide you with optimal care, which includes your follow-up. Under all circumstances we always encourage you to contact your private physician who remains a resource for coordinating your care. When calling for follow-up care, please make the office aware that this follow-up is from your recent emergency room visit. If for any reason you are refused follow-up, please contact the [facility] Emergency Department at and asked to speak to the emergency department charge nurse. If you do not have a primary care doctor, please follow up with the clinics below within 3-[address] [facility] [address] [place] [id number] [address] Sepsis Event Note (ED) - Evaluation Sepsis Screening Result: No Definite Risk - Focused Exam Vital Signs: Vital Signs Temp Pulse Resp BP Pulse Ox 03/02/20 17:11 97.6 F 69 16 154/80 H 97
== END 2020-03-02 17:40 | disposition home or self-care (01) ==
LOC: MW.ED 16:51
DX: K02.9 Dental caries, unspecified (principal); I10 Essential (primary) hypertension; F17.210 Nicotine dependence, cigarettes, uncomplicated
CPT/HCPCS: 99282